=== PATIENT | female | born 1985 | race Caucasian/White ===

== ENCOUNTER 2019-03-28 09:04 | Outpatient (CLI) | payer BC, SELFPAY ==
[2019-03-28 12:55] LABS: Anion Gap 8.9 mmol/L (3-11); BUN 8 mg/dL (7-18); CO2 31.1 mmol/L (21.0-32.0); CREATININE 0.77 mg/dL (0.55-1.02); Calcium 8.8 mg/dL (8.5-10.1); Calculated LDL 104 mg/dL; Chloride 103 mmol/L (98-107); Cholesterol 166 mg/dL (<200); Glucose 79 mg/dL (74-106); HDL Cholesterol 53 mg/dL (40-60); Potassium 4.3 mmol/L (3.5-5.1); Sodium 143 mmol/L (136-145); Triglyceride 47 mg/dL (<150)
== END 2019-03-28 09:24 ==
PROVIDERS: PCP Nurse Practitioner Family; Visit Provider Nurse Practitioner Family
DX: Z00.00 Encounter for general adult medical examination without abnormal findings (principal); Z13.220 Encounter for screening for lipoid disorders; Z13.228 Encounter for screening for other metabolic disorders
CPT/HCPCS: 36415; 80048; 80061

== ENCOUNTER 2019-04-24 16:53 | Outpatient (REF) | payer BC, SELFPAY ==
--- NOTE | 2019-04-24 10:00 | PAPFT_PTH ---
PATIENT: Larisa Vargas LOC: AUDIE U#:[id number] AGE/SX: 34/F ROOM: RE04/24/[address]: QUENTIN Cordero : 1985 BED: DIS: 04/24/2019 SPEC #: [id number] RECD: 04/25/19 13:05 STATUS: TONY HERNANDEZ #: [id number] VARGHESE: 04/24/19 10:[address]: Roxana Villatoro DEPT: [facility] Cytology RECD BY: Joselyn Hernandez Tissues: 1 - CX/ENDOCX FOR PAP SMEARS Procedures: PAP THIN PREP/UVM Screening HPV DNA PROBE Comments: [id number]
== END 2019-04-24 17:13 ==
LOC: LBN 16:53
PROVIDERS: PCP Nurse Practitioner Family; Visit Provider Nurse Practitioner Family
DX: Z12.4 Encounter for screening for malignant neoplasm of cervix (principal)
CPT/HCPCS: 88142; 87624

== ENCOUNTER 2019-06-05 14:03 | Outpatient (REF) | payer BC, SELFPAY ==
--- NOTE | 2019-06-05 13:30 | ENDO_PTH ---
PATIENT: Larisa Vargas LOC: AUDIE U#:[id number] AGE/SX: 34/F ROOM: RE06/05/[address]: Geovanna August : 1985 BED: DIS: 06/05/2019 SPEC #: [id number] RECD: 06/05/19 17:57 STATUS: TONY HERNANDEZ #: [id number] VARGHESE: 06/05/19 13:[address]: Geovanna August DEPT: Surgical Specimen RECD BY: Joselyn Hernandez ENTERED: 06/05/19 17:59 SP TYPE: Endo OTHR DR: QUENTIN Cordero Tissues: 1 - ENDOCERVICAL BX/CURRETTE 2 - CERVICAL BIOPSY 3 - CERVICAL BIOPSY Procedures: GROSS AND MICRO LEVEL 4 Comments: [id number]
== END 2019-06-05 14:23 ==
LOC: LBN 14:03
PROVIDERS: PCP Nurse Practitioner Family; Visit Provider Obstetrics & Gynecology Gynecology
DX: N87.1 Moderate cervical dysplasia (principal); N72 Inflammatory disease of cervix uteri; R87.612 Low grade squamous intraepithelial lesion on cytologic smear of cervix (LGSIL); R87.810 Cervical high risk human papillomavirus (HPV) DNA test positive
CPT/HCPCS: 88305

== ENCOUNTER 2019-06-11 15:03 | Outpatient (REF) | payer BC, SELFPAY ==
--- NOTE | 2019-06-11 14:45 | CER_PTH ---
PATIENT: Larisa Vargas LOC: AUDIE U#:[id number] AGE/SX: 34/F ROOM: RE06/11/[address]: Geovanna August : 1985 BED: DIS: 06/11/2019 SPEC #: [id number] RECD: 06/11/19 18:09 STATUS: TONY RELuis #: [id number] VARGHESE: 06/11/19 14:[address]: Geovanna August DEPT: Surgical Specimen RECD BY: Joselyn Hernandez ENTERED: 06/11/19 18:12 SP TYPE: CER OTHR DR: Roxana Villatoro, SIDE PANEL HANGER Tissues: 1 - CERVICAL LEEP/LOOP 2 - CERVICAL LEEP/LOOP 3 - CERVICAL LEEP/LOOP 4 - CERVICAL LEEP/LOOP 5 - CERVICAL LEEP/LOOP Procedures: GROSS AND MICRO LEVEL 5 Comments: [id number]
== END 2019-06-11 15:23 ==
LOC: LBN 15:03
PROVIDERS: PCP Nurse Practitioner Family; Visit Provider Obstetrics & Gynecology Gynecology
DX: D06.0 Carcinoma in situ of endocervix (principal); N87.1 Moderate cervical dysplasia
CPT/HCPCS: 88307

== ENCOUNTER 2019-11-21 02:46 | Outpatient (CLI) | payer BC, SELFPAY ==
[2019-11-24 08:19] LABS: SARS-CoV-2 RNA Undetected (Undetected); SARS-CoV-2 Specimen Source Nasopharynx
== END 2019-11-21 03:06 ==
PROVIDERS: PCP Nurse Practitioner Family; Visit Provider Nurse Practitioner Family
DX: Z11.59 Encounter for screening for other viral diseases (principal)
CPT/HCPCS: U0003

== ENCOUNTER 2020-11-19 16:28 | Outpatient (REF) | payer MEDICAID, SELFPAY ==
--- NOTE | 2020-11-19 15:50 | PAPFT_PTH ---
PATIENT: Larisa Vargas LOC: AUDIE U#:[id number] AGE/SX: 35/F ROOM: RE11/19/[address]: QUENTIN Cleary : 1985 BED: DIS: 11/19/2020 SPEC #: [id number] RECD: 11/19/20 17:06 STATUS: TONY DAVID #: [id number] VARGHESE: 11/19/20 15:[address]: Leora Morales DEPT: [facility] Cytology RECD BY: Joselyn Hernandez ENTERED: 11/19/20 17:06 SP TYPE: PAPFT PASCALE DR: QUENTIN Cordero Tissues: 1 - CX/ENDOCX FOR PAP SMEARS Procedures: PAP THIN PREP/UVM Screening HPV DNA PROBE Comments: [id number]
[2020-11-22 15:18] LABS: Chlamydia Result Negative (Negative); GC Result Negative (Negative)
== END 2020-11-19 16:29 | disposition home or self-care (01) ==
LOC: LBN 16:28
PROVIDERS: PCP Nurse Practitioner Family; Visit Provider Nurse Practitioner Family
DX: Z11.3 Encounter for screening for infections with a predominantly sexual mode of transmission (principal); Z12.4 Encounter for screening for malignant neoplasm of cervix; Z11.51 Encounter for screening for human papillomavirus (HPV)
CPT/HCPCS: 87491; 87591; 88142; 87624

== ENCOUNTER 2021-07-01 12:19 | Outpatient (REF) | payer MEDICAID, SELFPAY ==
--- NOTE | 2021-07-01 12:00 | PAPFT_PTH ---
PATIENT: Larisa Vargas LOC: AUDIE U#:[id number] AGE/SX: 36/F ROOM: RE07/01/[address]: QUENTIN Cordero : 1985 BED: DIS: 07/01/2021 SPEC #: [id number] RECD: 07/01/21 13:14 STATUS: TONY HERNANDEZ #: [id number] VARGHESE: 07/01/21 12:[address]: Roxana Villatoro DEPT: [facility] Cytology RECD BY: Joselyn Hernandez Tissues: 1 - CX/ENDOCX FOR PAP SMEARS Procedures: PAP THIN PREP/UVM Screening HPV DNA PROBE Comments: [id number]
== END 2021-07-01 12:20 | disposition home or self-care (01) ==
LOC: LBN 12:19
PROVIDERS: PCP Nurse Practitioner Family; Visit Provider Nurse Practitioner Family
DX: N89.8 Other specified noninflammatory disorders of vagina (principal); R87.610 Atypical squamous cells of undetermined significance on cytologic smear of cervix (ASC-US); Z12.4 Encounter for screening for malignant neoplasm of cervix; Z87.410 Personal history of cervical dysplasia
CPT/HCPCS: 88142; 87480; 87510; 87624; 87660

== ENCOUNTER 2022-04-05 13:40 | Outpatient (REF) | payer MEDICAID, SELFPAY ==
--- NOTE | 2022-04-05 11:10 | PAPFT_PTH ---
PATIENT: Larisa Vargas LOC: AUDIE U#:[id number] AGE/SX: 37/F ROOM: RE04/05/[address]: QUENTIN Cordero : 1985 BED: DIS: 04/05/2022 SPEC #: [id number] RECD: 04/06/22 12:43 STATUS: TONY RELuis #: [id number] VARGHESE: 04/05/22 11:[address]: Roxana Villatoro DEPT: [facility] Cytology RECD BY: Joselyn Hernandez Tissues: 1 - CX/ENDOCX FOR PAP SMEARS Procedures: PAP THIN PREP/UVM Screening HPV DNA PROBE Comments: [id number] (HPV 16 & 18/45) (CHLAMYDIA/GC)
[2022-04-07 12:49] LABS: Chlamydia Result Negative (Negative); GC Result Negative (Negative)
== END 2022-04-05 13:41 | disposition home or self-care (01) ==
LOC: LBN 13:40
PROVIDERS: PCP Nurse Practitioner Family; Visit Provider Nurse Practitioner Family
DX: Z11.3 Encounter for screening for infections with a predominantly sexual mode of transmission (principal); Z12.4 Encounter for screening for malignant neoplasm of cervix; R87.612 Low grade squamous intraepithelial lesion on cytologic smear of cervix (LGSIL); Z11.51 Encounter for screening for human papillomavirus (HPV); R87.810 Cervical high risk human papillomavirus (HPV) DNA test positive
CPT/HCPCS: 87491; 87591; 88142; 87624

== ENCOUNTER 2022-04-17 01:39 | Outpatient (CLI) | payer MEDICAID, SELFPAY ==
--- NOTE | 2022-04-17 07:45 | DI.US_ITS ---
Exam(s) US BREAST LT COMPLETE US BREAST RT COMPLETE MG MAMMO DIAGNOSTIC BI EXAM: MG MAMMO DIAGNOSTIC BI CLINICAL HISTORY: bilateral breast pain, lumps upper outer quadrant,n64.4. TECHNIQUE: Craniocaudal and mediolateral oblique Full Field Digital Mammography views with Computer Aided Diagnosis followed by Tomosynthesis and breast ultrasound. COMPARISON: US US BREAST RT COMPLETE from 04/17/2022 US US BREAST LT COMPLETE from 04/17/2022. Baseline mammogram. FINDINGS: Mammography/Tomosynthesis: Masses/Architectural Distortion: None seen. Microcalcifictions: No suspicious pleomorphic-type are seen. Skin Thickening/Nipple Retraction: None. Left breast US: Echotexture: Normal appearance of the glandular tissue. Shadowing: No suspicious foci. Cyst: 8 x 3 x 8 millimeter cyst 1 o'clock position 1 cm from the nipple. 8 x 4 x 6 millimeter cyst 3 o'clock position 4 cm from the nipple Solid lesions: None seen. Ductal dilation: None. Right breast ultrasound: Echotexture: Normal appearance of the glandular tissue. Shadowing: No suspicious foci. Cyst: None. Solid lesions: None seen. Ductal dilation: None. IMPRESSION: 1. No evidence of malignancy is noted. 2. Unless there is more urgent need, follow-up screening mammography is recommended, as per [place] [employer] guidelines. 3. The findings were discussed with the patient on the date of the examination. BI-RADS Category 2 - Benign Findings Breast Density - Category C - Heterogeneously dense Breast density category C or D implies that the patient has dense breast tissue. Dense breast tissue is very common and is not abnormal but dense breast tissue can make it harder to find cancer on a ma mmogram. Also, dense breast tissue may increase their breast cancer risk. This information about the result of the mammogram report was provided to the patient to raise their awareness. Use this report when you speak with the patient about their risks for breast cancer, which includes their family hist ory. At that time, you may recommend for more screening tests (Ultrasound or MRI) as they might be us eful based on their risk. A negative radiographic report should not delay biopsy if a dominant or clinically suspicious mass is present. Up to ten percent of cancers are not identified on mammography. A negative report may reinforce clinical impression. Adenosis and dense breasts may obscure an underlying neoplasm. False positive reports average 6 to 10%. Patient will receive a letter notifying them of these results.
== END 2022-04-17 01:59 ==
LOC: DI 01:39
PROVIDERS: PCP Nurse Practitioner Family; Visit Provider Nurse Practitioner Family
DX: R92.2 Inconclusive mammogram (principal); N64.4 Mastodynia
CPT/HCPCS: 76642; 77062; 77066; G0279

== ENCOUNTER 2022-04-27 10:05 | Outpatient (REF) | payer MEDICAID, SELFPAY ==
--- NOTE | 2022-04-27 09:00 | ENDO_PTH ---
PATIENT: Larisa Vargas LOC: AUDIE U#:[id number] AGE/SX: 37/F ROOM: RE04/27/[address]: Marie Gay DO : 1985 BED: DIS: 04/27/2022 SPEC #: [id number] RECD: 04/27/22 12:25 STATUS: TONY RELuis #: [id number] VARGHESE: 04/27/22 09:[address]: Marie Gay DEPT: Surgical Specimen RECD BY: Joselyn Hernandez ENTERED: 04/27/22 12:26 SP TYPE: Endo OTHR DR: QUENTIN Cordero Tissues: 1 - ENDOCERVICAL BX/CURRETTE 2 - CERVICAL BIOPSY Procedures: GROSS AND MICRO LEVEL 4 Comments: [id number]
== END 2022-04-27 10:06 | disposition home or self-care (01) ==
LOC: LBN 10:05
PROVIDERS: PCP Nurse Practitioner Family; Visit Provider Obstetrics & Gynecology
DX: R87.612 Low grade squamous intraepithelial lesion on cytologic smear of cervix (LGSIL) (principal)
CPT/HCPCS: 88305

== ENCOUNTER 2022-05-19 15:03 | Emergency (ER) | payer MEDICAID, SELFPAY ==
[2022-05-19 15:07] VITALS: BP 127/66; PULSE 106; RESP 16; TEMP 36.4; O2SAT 99
--- NOTE | 2022-05-19 15:15 | DI.CT_ITS ---
Exam(s) CT RENAL COLIC WO EXAM: CT RENAL COLIC WO CLINICAL HISTORY: flank pain. TECHNIQUE: Imaging Protocol: Axial computed tomography images with coronal and sagittal reformatted images were created and reviewed. CONTRAST MATERIAL: Noncontrast COMPARISON: No exams were available for comparison FINDINGS: ABDOMEN: Lung Bases: Normal where visualized. Liver: Normal attenuation. No measurable mass. Gallbladder and biliary tract: Bladder contracted. No radiodense calculus or dilation. Pancreas: Normal density, no calcifications or inflammatory process. Spleen: Normal. Kidneys: Normal size, contour and axis. Slight right hydronephrosis. No renal calculi or ureteral ca lculi are seen. No masses seen. No perinephric collection. Adrenal glands: No masses seen. Abdominal Aorta: Abdominal portion non-dilated. PELVIS: Bladder: Symmetric distention, no gross wall thickening. No evidence of stones.No visible mass. Bowel: No obstruction or bowel wall thickening. Appendix normal. Moderate quantity of stool. Reproductive: Unremarkable. IUD. Peritoneal cavity: No ascites, collection or mesenteric inflammatory response. Bones: Unremarkable for age.. IMPRESSION: Mild right hydronephrosis. No visible obstructing stone. Findings could be secondary to a recently passed stone. RADIATION DOSE DELIVERED: 598.62mGy.cm Total DLP DATA REPOSITORY: All CT scans at this facility are submitted to the National Radiology Data Registry (NRDR) Dose Index Registry (DIR) with the [employer] (A[employer]). RADIATION OPTIMIZATION: All CT scans at this facility use at least one of these dose optimization te chniques: automated exposure control; mA and/or kV adjustment per patient size (includes targeted exa ms where dose is matched to clinical indication); or iterative reconstruction.
--- NOTE | 2022-05-19 15:21 | W.ED.GENAD ---
Discharge Plan Disposition Patient Disposition: Home Condition: Good Discharge Details Clinical Impression: Pyelonephritis Primary Care Provider: Roxana Villatoro ED Provider: Jagjit Warner Meds and New Rx's Prescriptions: New cefpodoxime 200 mg tablet 200 mg PO BID Qty: 14 0RF Rx Instructions: must administer with a meal/food Continued methylphenidate HCl 36 mg tablet extended release 24hr 36 mg PO DAILY MDD 36mg Qty: 28 0RF Rx Instructions: Take 1 tablet daily multivitamin [Daily Multi-Vitamin] Tablet 1 tab PO DAILY Discharge Instructions Instructions: Urinary Tract Infection in Women (ED) Additional Instructions: You were seen for right back pain. Your work-up suggest you have a right-sided kidney infection with no evidence of kidney stone. Please alternate acetaminophen with ibuprofen to help control pain. Drink plenty fluids to stay hydrated. 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 Follow-up with primary care next week. Return to ED for spiking fevers, worsening pain, vomiting, confusion, other concerns. Medical Decision Making Patient presenting with right back and flank pain that she does report worse with movement but also varies in intensity and when severe it causes nausea. Pain is in the right upper lumbar region. Breathing does not make it worse but when the pain is severe it makes her breathing hard. She does not feel short of breath otherwise. She has had no fever. Clinically this would potentially represent pyelonephritis, renal colic, musculoskeletal back pain. Given the location of pain and lack of pleuritic component or shortness of breath does not appear to be related to any pulmonary issues. Consider liver or gallbladder but she is nontender in the right upper quadrant. IV established and ketorolac ordered. Fluids started. Laboratory studies including urine and urinalysis sent. CT scan for stone ordered. Patient feels better after IV ketorolac. Pain is essentially gone. Vital signs are normal at this point. Her white count is elevated to 12.9. Hemoglobin, chemistries, kidney function, liver function, lipase are all normal. Initial urinalysis appears infected but is contaminated with epithelial cells. Repeat clean-catch micro was sent and confirms UTI. CT scan read by radiology shows some mild hydronephrosis but no evidence of renal, ureteral or bladder stone. Will assume patient has pyelonephritis despite lack of fever. She is quite active so I will hold off on fluoroquinolones. We will place her on cefpodoxime after a 1 g dose of ceftriaxone here. She will alternate acetaminophen with ibuprofen for pain control. She will drink fluids to stay hydrated. Follow-up with primary care next week. Return precautions provided. Lab Data Lab results reviewed: Yes I reviewed the patient's lab results. HPI General Mode of arrival: ambulatory. Date/Time Provider Initiated Documentation: 05/19/22 15:21. Limitations to Documentation: no limitations. Information obtained by: patient. HPI Narrative: Patient presents to the ED with right-sided flank pain that is worse with movement and changes in intensity since yesterday morning. Some radiation into the abdomen. The majority of pain is in the back and flank. She has had no fever, cough, shortness of breath, chest pain. She has nausea but no vomiting or diarrhea. She has no urinary symptoms and has not had any blood in her urine. She has no previous history of kidney stones. She has tried Tylenol at home without much relief. She has had no previous abdominal surgeries. She is otherwise healthy. Related Data Home Medications Medication Instructions Recorded Confirmed multivitamin (Daily Multi-Vitamin 1 tab PO DAILY 06/05/19 05/19/22 tablet) methylphenidate HCl 36 mg 36 mg PO DAILY #28 tabs 04/05/22 05/19/22 tablet,extended release 24 hr cefpodoxime 200 mg tablet 200 mg PO BID #14 tabs 05/19/22 Previous Rx's Medication Instructions Recorded methylphenidate HCl 36 mg 36 mg PO DAILY #28 tabs 04/05/22 tablet,extended release 24 hr cefpodoxime 200 mg tablet 200 mg PO BID #14 tabs 05/19/22 Allergies Allergy/AdvReac Type Severity Reaction Status Date / Time No Known Allergies Allergy Verified 04/27/22 08:49 General Stated Complaint: FlankPain AKASH: 3 Review of Systems Narrative: Per HPI PFSH All Active Problems (Updated 05/19/22 @ 17:36 by Jagjit Warner MD) Pyelonephritis (Acute) Major depressive disorder, recurrent (Chronic) Abnormal uterine bleeding (Chronic) IUD for treatment Abnormal Pap smear of cervix (Chronic) 04/2019: LGSIL, positive HPV. 05/2019 colpo biopsies: TAY-1, TAY-2. 05/2019: LEEP CIN2-3. Clear margins. 10/2020: Repeat Pap/HPV negative 06/2021: ASCUS/+HPV 03/2022-LSIL +HPV 04/2022-Colpo with ECC, Bx at 9 oclock IUD (intrauterine device) in place (Chronic) 06/10/2019 Kyleena IUD placed Right carpal tunnel syndrome (Chronic) Medical History ADHD Generalized anxiety disorder Surgical History S/P LEEP of cervix (~2019) Family History Mother No problems noted. Father Kidney disease Brother No problems noted. Brother No problems noted. Sister Depression Daughter No problems noted. Daughter No problems noted. Daughter No problems noted. Maternal Grandfather No problems noted. Maternal Grandmother No problems noted. Paternal Grandfather , in his 80s Skin cancer Paternal Grandmother , at 80 Breast cancer Alzheimer's dementia Social History Smoking/Tobacco Use Status: Never Second Hand Exposure: Yes Smoking risk assessment performed?: Yes Alcohol Intake: current Alcohol Intake frequency: a few times a month Alcohol type: hard liquor Drug use: Never Caregiver/Support person: No Household members: children Housing: apartment Number of Children: 3 Communication Needs: None Do you need help understanding health information?: Never current occupation: Teacher [employer] @ [employer] Pets and animals: No Sexually active: Yes Do you think of yourself as: straight/heterosexual Current gender identity: female What is your relationship status?: How often do you talk on the phone with friends or family?: once per week How often do you get together with friends or relatives?: once per week How often do you attend taoist or adventism services?: 1-3 times per year Do you belong to any clubs or organized social groups?: no Panel score (0-1 are the most socially isolated patients): 0 What type of physical activity do you participate in: weight lifting and running Duration: 45-60 minutes/day Frequency: 3-4 times per week Andree/Christian: No preference Special andree needs: No Seatbelt use: always Helmet use: Yes Helmet use: sometimes Drive intox or ride w/intox m48/m60 tank driver: No Do you feel safe at home: Yes Do you feel safe in your relationship?: Yes Additional Social history: Children: Eufemia Gross Penelope Female Reproductive History Menstrual control method: progestin IUCD History History 3 Para 3 Hx # Term Pregnancies Multiple births Hx # Pregnancies Ectopic pregnancies AB induced Hx Number of Living Children 3 AB spontaneous Exam Narrative Exam Narrative: Const: WDWN female in NAD. HEENT: NC/AT. Normal facial exam. Eyes: Normal conjunctiva and sclera. Neck: Supple. Trachea midline. Lungs: Normal respiratory effort. Lungs are clear. Cor: RRR without murmur/gallop. Good radial pulses. GI: Soft. NT/ND. No guarding or rebound. Back: Right CVAT Neuro: A+O x 3. Normal speech, mentation, gait. Cranial nerves II - XII grossly intact. No gross motor or sensory deficit. Ext: No C/C/E. Skin: Warm and dry without rash. Course Vital Signs Vital signs: Vital Signs Temperature 97.5 F L 05/19/22 15:07 Pulse 106 H 05/19/22 15:07 Respiratory Rate 16 05/19/22 15:07 Blood Pressure 127/66 05/19/22 15:07 Pulse Oximetry 99 05/19/22 15:07 Temperature 97.5 F L 05/19/22 15:07 Temperature Source Oral 05/19/22 15:07 Pulse 106 H 05/19/22 15:07 Respiratory Rate 16 05/19/22 15:07 Respiratory Effort Normal 05/19/22 15:11 Blood Pressure 127/66 05/19/22 15:07 Blood Pressure Position Sitting 05/19/22 15:07 Pulse Oximetry 99 05/19/22 15:07 Oxygen Delivery Method Room Air 05/19/22 15:07 Oxygen Flow Rate 0 05/19/22 15:07 Pain Level 7 05/19/22 15:07
[2022-05-19 15:36] LABS: Abs Immature Grans 0.04 10^3/uL (0.0-0.06); Absolute Basophil Count 0.06 10^3/uL (0.0-0.2); Absolute Monocyte Count 0.99 10^3/uL (0.1-0.8); Absolute Neutrophil Count 10.16 10^3/uL (1.2-6.7); Basophils % 0.5; Eosinophils % 0.8; HCT 43.4 % (36.0-46.0); Immature Grans % 0.3; Lymphocytes % 11.7; MCH 29.5 pg (27.0-33.0); MCHC 32.3 % (32.0-36.0); MCV 92 fL (80-95); MPV 9.5 fL (8.0-11.0); Monocytes % 7.7; Platelet Count 257 10^3/uL (130-400); RBC 4.74 10^6/uL (3.93-5.22); RDW 11.9 % (11.7-14.6); WBC 12.86 10^3/uL (4.4-10.8)
[2022-05-19] MEDS: Ketorolac 30 MG/ML VIAL IVP (15:44)
[2022-05-19] MEDS: Normal Saline 1,000 ML 1000 ML IV (15:45)
[2022-05-19 15:53] LABS: ALT 18 U/L (14-59); AST 21 U/L (15-37); Albumin 4.5 g/dL (3.4-5.0); Alkaline Phosphatase 70 U/L (46-116); Anion Gap 4.5 mmol/L (3-11); BUN 7 mg/dL (7-18); Bilirubin, Total 0.7 mg/dL (0.2-1.0); CO2 32.5 mmol/L (21.0-32.0); Calcium 9.3 mg/dL (8.5-10.1); Chloride 103 mmol/L (98-107); Estimated GFR 75.34 (mL/min/1.73m2); Glucose 103 mg/dL (74-106); Lipase 46 U/L (16-77); Potassium 4.3 mmol/L (3.5-5.1); Sodium 140 mmol/L (136-145)
[2022-05-19 15:56] LABS: Bilirubin Negative (Negative); Blood Moderate (Negative); Clarity Sl Cloudy (Clear); Glucose Negative (Negative); Ketones Negative (Negative); Leukocyte Esterase Small (Negative); Nitrite Negative (Negative); Specific Gravity 1.025 (1.005-1.025); Urobilinogen 0.2 mg/dL (Up to 0.2)
--- NOTE | 2022-05-19 16:10 | NUR.NOTE ---
Nursing Note: Pt to DI via wheelchair for ordered exam, reports discomfort relieved w/IV toradol, provider aware.
[2022-05-19 16:22] LABS: Bacteria Many HPF (Negative); C & S Indicated? No/Sq. Contamination; Crystals Negative HPF (Negative); Epithelial Cells Moderate HPF (Negative); Mucus Trace (Negative); RBC 20-50 HPF (0-2); WBC >50 HPF (0-5)
[2022-05-19 16:47] VITALS: BP 121/65; PULSE 83; RESP 18; O2SAT 97
--- NOTE | 2022-05-19 16:48 | NUR.NOTE ---
Nursing Note: Pt ambulatory to bathroom for repeat urine sample, IVF cont. to infuse, pain controlled at this time.
[2022-05-19 17:20] LABS: Bacteria Moderate HPF (Negative); Crystals Moderate Amorphous HPF (Negative); Epithelial Cells Few HPF (Negative); WBC 20-50 HPF (0-5)
[2022-05-19 17:21] LABS: C & S Indicated? Yes; Casts 0-2 Hyaline LPF (Negative); Mucus Trace (Negative)
[2022-05-19] MEDS: cefTRIAXone 1 GM/50 ML BAG IVPB (17:35)
[2022-05-19 17:56] VITALS: BP 114/68; PULSE 88; RESP 16; TEMP 37; O2SAT 98
--- NOTE | 2022-05-22 13:42 | NUR.NOTE ---
Nursing Note: Accessed chart to look up whether or not on antibiotic.
--- NOTE | 2022-05-22 14:51 | W.EDPROG ---
Date of service: 05/22/22 Time of Service: 14:52 Medical Decision Making Patient was seen in the emergency department and diagnosed with pyelonephritis. I reviewed her culture results which was showing pansensitive E. coli. Patient was discharged on cefpodoxime. We will continue empiric trial of expectant outpatient management. Discharge Plan Disposition Patient Disposition: Home Condition: Good Discharge Details Clinical Impression: Pyelonephritis Primary Care Provider: Roxana Villatoro ED Provider: Jagjit Warner [facility] and New Rx's Prescriptions: New cefpodoxime 200 mg tablet 200 mg PO BID Qty: 14 0RF Rx Instructions: must administer with a meal/food Continued methylphenidate HCl 36 mg tablet extended release 24hr 36 mg PO DAILY MDD 36mg Qty: 28 0RF Rx Instructions: Take 1 tablet daily multivitamin [Daily Multi-Vitamin] Tablet 1 tab PO DAILY Discharge Instructions Instructions: Urinary Tract Infection in Women (ED) Additional Instructions: You were seen for right back pain. Your work-up suggest you have a right-sided kidney infection with no evidence of kidney stone. Please alternate acetaminophen with ibuprofen to help control pain. Drink plenty fluids to stay hydrated. 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 Follow-up with primary care next week. Return to ED for spiking fevers, worsening pain, vomiting, confusion, other concerns. Discharge Data Discharge Date/Time-TO BE ENTERED AT DEPARTURE: 05/19/22 18:09
== END 2022-05-19 18:09 | disposition home or self-care (01) ==
PROVIDERS: Emergency Provider Emergency Medicine; PCP Nurse Practitioner Family
DX: N12 Tubulo-interstitial nephritis, not specified as acute or chronic (principal); D72.829 Elevated white blood cell count, unspecified; N13.30 Unspecified hydronephrosis
CPT/HCPCS: 36415; 80053; 81025; 83690; 87077; 96361; 96365; 96375; 99284; 74176; 81003; 81015; 85025; 87086; 87186; J0696; J1885

== ENCOUNTER 2022-07-03 01:25 | Outpatient (CLI) | payer MEDICAID, SELFPAY ==
[2022-07-03 12:13] LABS: HGB 12.9 g/dL (11.2-15.7); MCHC 33.9 % (32.0-36.0); MCV 91 fL (80-95); MPV 9.5 fL (8.0-11.0); Platelet Count 233 10^3/uL (130-400); RBC 4.16 10^6/uL (3.93-5.22); RDW 12.3 % (11.7-14.6); RDW-SD 41.6 fL; WBC 6.38 10^3/uL (4.4-10.8)
[2022-07-03 12:34] LABS: Lab Add On Test DONE
[2022-07-03 12:35] LABS: Anion Gap 5.2 mmol/L (3-11); BUN 10 mg/dL (7-18); CO2 28.8 mmol/L (21.0-32.0); CREATININE 0.9 mg/dL (0.55-1.02); Calcium 8.9 mg/dL (8.5-10.1); Chloride 103 mmol/L (98-107); Glucose 108 mg/dL (74-106); Sodium 137 mmol/L (136-145); TSH (W/Ref FT4) 1.93 uIU/mL (0.36-3.74)
[2022-07-03 12:39] LABS: Hemoglobin A1C 5.3 % (<5.7)
== END 2022-07-03 01:26 | disposition home or self-care (01) ==
LOC: LOS 01:25
PROVIDERS: PCP Nurse Practitioner Family; Visit Provider Nurse Practitioner Family
DX: R53.83 Other fatigue (principal); Z83.3 Family history of diabetes mellitus
CPT/HCPCS: 36415; 80048; 85027; 83036; 84443

== ENCOUNTER 2022-08-07 07:45 | Emergency (ER) | payer MEDICAID, SELFPAY ==
[2022-08-07 07:49] VITALS: BP 99/71; PULSE 61; RESP 18; TEMP 36; O2SAT 100
--- NOTE | 2022-08-07 07:56 | W.ED.GENAD ---
Discharge Plan Disposition Patient Disposition: Home Condition: Good Discharge Details Clinical Impression: Closed fracture of 5th metacarpal Primary Care Provider: Roxana Villatoro ED Provider: Bree Matthews Home Meds and New Rx's Prescriptions: Continued multivitamin [Daily Multi-Vitamin] Tablet 1 tab PO DAILY methylphenidate HCl 36 mg tablet extended release 24hr 36 mg PO DAILY MDD 36mg Qty: 28 0RF Rx Instructions: Take 1 tablet daily Discharge Instructions Instructions: Boxer Fracture (ED) Additional Instructions: Alignment of fracture significantly improved after reduction. Please keep splint on until reevaluated by orthopedics. Please encourage rest, ice, elevation. Tylenol and ibuprofen as needed for discomfort. Please call orthopedics to schedule follow-up appointment. Number listed below. If you develop any new or worsening symptoms please seek care urgently once again. Please continue with sling to protect the area as needed, particularly when at work. Avoid any lifting with the right hand. Referrals: Roxana Villatoro NP [Primary Care Provider] - Ruy Hernández MD [ [facility] STAFF PHYSICIAN] - Discharge Data Discharge Date/Time-TO BE ENTERED AT DEPARTURE: 08/07/22 11:27 Medical Decision Making Patient is a pleasant 37-year-old [id number] female presenting today with chief complaint of right hand pain. She reports that this morning she got upset and punched the wall. Since that time she has been having pain over the fifth MCP joint. No radiation of pain. No numbness or tingling. Denies other injury at the time of the incident. History of fracture to the right wrist but no pain in that region, no prior hand fractures or surgeries. On exam, patient appears nontoxic. 2+ distal pulses. Sensation is intact. No pain over the anatomical snuffbox or in the wrist. Good range of motion. No palpable visible deformities. Ecchymosis, pain in maximal area of tenderness over the fifth MCP joint. Consider potential fracture and will obtain x-ray for further evaluation. Patient declines analgesics. BONES: There is a fracture at the distal shaft the 5th metacarpal with ventral angulation and ventral displacement.? No additional fractures are seen.? No bony destructive lesion is seen. JOINTS: No dislocation present. SOFT TISSUE: Swelling over 5th metacarpal head. IMPRESSION: Fifth metacarpal fracture. Consulted with ortho. They advised reduction with Jahss technique and application of ulnar gutter. Discussed with patient and family. We discussed risks/benefits, expected procedural steps and alternative. We have decided on hematoma block and bedside reduction. Conset obtained. Hematoma block was completed using standard, sterile technique. 1% Lidocaine plain was infiltrated into fracture, 6cc. This provided sufficient analgesics. Jahss procedure was attempted, split applied and xr obtained. FINDINGS: A plaster cast has been placed which obscures the bony detail.? The alignment appears unchanged. Consented the patient again. Another hematoma block completed as initial was wearing off. This was also completed with standard, sterile technique. 5cc infiltrated with good effected. This time, direct manipulation was used. FINDINGS: ?Limited evaluation without lateral view.? Limited due to overlap of fingers with metacarpals.? Alignment of the previously noted 5th metacarpal fracture is significantly improved. Patient neurovascularly intact. plaster ulnar splint put on with MCP at 90 and PIP held straight. Padding between 5 and 4 digits, included 4th in splint as well. Patient tolerated this well. Sling applied. Encoraged RICE. Will refer to ortho. Return precautions discussed. Discussed activies she should avoid as well as pain managmeent. All of her quesitons and concerns were addressed, she is in agreement with this plan. HPI General Date/Time Provider Initiated Documentation: 08/07/22 07:54. Limitations to Documentation: no limitations. Information obtained by: patient and RN notes reviewed. History of Present Illness 37 year old F presents to the emergency department with the chief complaint of right hand pain after punching wall, described as moderate, with intensity rated at 6. Quality is described as aching, and is localized to the right and upper extremity. Patient reports no radiation. Patient started experiencing this hour(s) and it has been constant. Immobilization improves symptom(s), Movement worsens symptoms . Patient notes no other symptoms.. Patient did receive the following treatments prior to arrival, none Related Data Home Medications Medication Instructions Recorded Confirmed multivitamin (Daily Multi-Vitamin 1 tab PO DAILY 06/05/19 08/07/22 tablet) methylphenidate HCl 36 mg 36 mg PO DAILY #28 tabs 07/03/22 08/07/22 tablet,extended release 24 hr Previous Rx's Medication Instructions Recorded methylphenidate HCl 36 mg 36 mg PO DAILY #28 tabs 07/03/22 tablet,extended release 24 hr Allergies Allergy/AdvReac Type Severity Reaction Status Date / Time No Known Allergies Allergy Verified 08/07/22 07:51 General Stated Complaint: Orthopedic AKASH: 4 Review of Systems Constitutional Constitutional: Reports as per HPI and Denies weakness Musculoskeletal Musculoskeletal: Reports as per HPI and Denies tingling Integumentary/Breasts Skin/Breast: Reports as per HPI Neurologic Neurologic: Reports as per HPI, Denies tingling, Denies paresthesias and Denies weakness PFSH All Active Problems (Updated 08/07/22 @ 11:22 by LISA Pederson) Closed fracture of 5th metacarpal (Acute) Generalized anxiety disorder (Chronic) ADHD (Chronic) Major depressive disorder, recurrent (Chronic) Abnormal uterine bleeding (Chronic) IUD for treatment Abnormal Pap smear of cervix (Chronic) 04/2019: LGSIL, positive HPV. 05/2019 colpo biopsies: TAY-1, TAY-2. 05/2019: LEEP CIN2-3. Clear margins. 10/2020: Repeat Pap/HPV negative 06/2021: ASCUS/+HPV 03/2022-LSIL +HPV 04/2022-Colpo with ECC, Bx at 9 oclock IUD (intrauterine device) in place (Chronic) 06/10/2019 Kyleena IUD placed Right carpal tunnel syndrome (Chronic) Medical History ADHD Generalized anxiety disorder Surgical History S/P LEEP of cervix (~2019) Family History Mother No problems noted. Father Kidney disease Brother No problems noted. Brother No problems noted. Sister Depression Daughter No problems noted. Daughter No problems noted. Daughter No problems noted. Maternal Grandfather No problems noted. Maternal Grandmother No problems noted. 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[employer] Pets and animals: No Sexually active: Yes Do you think of yourself as: straight/heterosexual Current gender identity: female What is your relationship status?: How often do you talk on the phone with friends or family?: once per week How often do you get together with friends or relatives?: once per week How often do you attend hinduism or restorationist services?: 1-3 times per year Do you belong to any clubs or organized social groups?: no Panel score (0-1 are the most socially isolated patients): 0 What type of physical activity do you participate in: weight lifting and running Duration: 45-60 minutes/day Frequency: 3-4 times per week Andree/Congregational: No preference Special andree needs: No Seatbelt use: always Helmet use: Yes Helmet use: sometimes Drive intox or ride w/intox dinkey driver: No Do you feel safe at home: Yes Do you feel safe in your relationship?: Yes Additional Social history: Children: Ginny, Eufemia, Osmond Female Reproductive History Menstrual control method: progestin IUCD History History 3 Para 3 Hx # Term Pregnancies Multiple births Hx # Pregnancies Ectopic pregnancies AB induced Hx Number of Living Children 3 AB spontaneous Exam Const General: cooperative, healthy appearing, comfortable, no acute distress, well developed and well groomed Nutritional Appearance: average body habitus and well nourished Orientation: alert and awake Resp Effort & Inspection: normal respiratory effort, able to speak in complete sentences and no respiratory distress Cardio Rate: regular rate Rhythm: regular rhythm Skin General skin exam: ecchymosis Neuro General: patient alert and patient awake Cognition: normal cognition Speech: speech normal Gait: normal gait Motor: muscle tone normal throughout Sensory Exam: no sensory deficits noted Extrem Hand/finger images: 1. Area of maximal discomfort over the fifth MCP joint. No pain proximal to this, no palpable or visual deformity. 2+ distal pulses. Area of ecchymosis and some amount of swelling over this area. This does not extend into the finger. Wrist is nontender with full range of motion. No pain over the anatomical snuffbox. Good range of motion of her fingers. Sensation intact. Psych Appearance: grossly normal and well kempt Mental Status: mental status grossly normal Speech and Movement: speech and movement normal Course Vital Signs Vital signs: Vital Signs Temperature 36.0 C L 08/07/22 07:49 Pulse 61 08/07/22 07:49 Respiratory Rate 18 08/07/22 07:49 Blood Pressure 99/71 L 08/07/22 07:49 Pulse Oximetry 100 08/07/22 07:49 Temperature 36.0 C L 08/07/22 07:49 Temperature Source Skin 08/07/22 07:49 Pulse 61 08/07/22 07:49 Respiratory Rate 18 08/07/22 07:49 Respiratory Effort Normal 08/07/22 07:52 Blood Pressure 99/71 L 08/07/22 07:49 Pulse Oximetry 100 08/07/22 07:49 Oxygen Delivery Method Room Air 08/07/22 07:49 Oxygen Flow Rate 0 08/07/22 07:49 Pain Level 7 08/07/22 07:54 Procedures Orthopedic Fracture Reduction Fracture #1: Time Out Performed: Yes Side: right Fracture Reduction Location: metacarpal Analgesia: hematoma block Technique: direct manipulation Post Reduction X-rays Demonstrate: anatomical reduction Post-reduction neuro exam: intact and no change Post-reduction vascular exam: intact and no change Splint Applied: Yes Patient Tolerated Procedure: well and no complications
--- NOTE | 2022-08-07 08:00 | DI.RAD_ITS ---
Exam(s) XR HAND RT COMPLETE EXAM: XR HAND RT COMPLETE CLINICAL HISTORY: punched wall, ulnar sided hand pain. TECHNIQUE: 2D digital imaging was performed. Three views. COMPARISON: No exams were available for comparison FINDINGS: BONES: There is a fracture at the distal shaft the 5th metacarpal with ventral angulation and ventral displacement. No additional fractures are seen. No bony destructive lesion is seen. JOINTS: No dislocation present. SOFT TISSUE: Swelling over 5th metacarpal head. IMPRESSION: Fifth metacarpal fracture. DATA REPOSITORY: RADIATION DOSE DELIVERED:
[2022-08-07] MEDS: Lidocaine 1% Multi-Dose 50 ML VIAL IJ (08:48)
--- NOTE | 2022-08-07 09:30 | DI.RAD_ITS ---
Exam(s) XR HAND RT COMPLETE EXAM: XR HAND RT COMPLETE CLINICAL HISTORY: post reduction. TECHNIQUE: 2D digital imaging was performed. Three views. COMPARISON: CR XR HAND RT COMPLETE from 08/07/2022 FINDINGS: A plaster cast has been placed which obscures the bony detail. The alignment appears unchanged. DATA REPOSITORY: RADIATION DOSE DELIVERED:
--- NOTE | 2022-08-07 10:45 | DI.RAD_ITS ---
Exam(s) XR HAND RT LIMITED EXAM: XR HAND RT LIMITED INDICATION: post-reduction. COMPARISON: CR XR HAND RT COMPLETE from 08/07/2022 CR XR HAND RT COMPLETE from 08/07/2022 TECHNIQUE: 2D digital imaging was performed. Two views. PA and oblique. No lateral. FINDINGS: Limited evaluation without lateral view. Limited due to overlap of fingers with metacarpals. Align ment of the previously noted 5th metacarpal fracture is significantly improved. DATA REPOSITORY: RADIATION DOSE DELIVERED:
[2022-08-07 11:26] VITALS: BP 99/71; PULSE 61; RESP 18; TEMP 36; O2SAT 100
== END 2022-08-07 11:27 | disposition home or self-care (01) ==
PROVIDERS: Emergency Provider Physician Assistant; PCP Nurse Practitioner Family
DX: S62.326A Displaced fracture of shaft of fifth metacarpal bone, right hand, initial encounter for closed fracture (principal); W22.8XXA Striking against or struck by other objects, initial encounter
CPT/HCPCS: 26605; 81025; 99283; 73120; 73130

== ENCOUNTER 2022-08-15 16:13 | Outpatient (CLI) | payer MEDICAID, SELFPAY ==
--- NOTE | 2022-08-15 15:15 | DI.RAD_ITS ---
Exam(s) XR HAND RT COMPLETE EXAM: XR HAND RT COMPLETE CLINICAL HISTORY: Right 5th metacarpal fracture. TECHNIQUE: 2D digital imaging was performed of the right hand. Three images were obtained. AP, late ral and oblique views were obtained. COMPARISON: CR XR HAND RT COMPLETE from 08/07/2022 CR XR HAND RT COMPLETE from 08/07/2022 CR XR HAND RT LIMITED from 08/07/2022 FINDINGS: BONES: There has been no change in alignment of the fracture involving the distal 5th metacarpal. No new fractures are seen. No bony destructive lesion is seen. JOINTS: No dislocation present. The disc spaces are well maintained. SOFT TISSUE: Normal. IMPRESSION: Stable 5th metacarpal fracture. DATA REPOSITORY: RADIATION DOSE DELIVERED:
== END 2022-08-15 16:14 | disposition home or self-care (01) ==
LOC: DIORS 16:13
PROVIDERS: PCP Nurse Practitioner Family; Referring Provider Nurse Practitioner Family; Visit Provider Student in an Organized Health Care Education/Training Program
DX: S62.308D Unspecified fracture of other metacarpal bone, subsequent encounter for fracture with routine healing (principal); X58.XXXA Exposure to other specified factors, initial encounter
CPT/HCPCS: 73130

== ENCOUNTER 2022-08-22 15:35 | Outpatient (CLI) | payer MEDICAID, SELFPAY ==
--- NOTE | 2022-08-22 15:15 | DI.RAD_ITS ---
Exam(s) XR HAND RT COMPLETE EXAM: XR HAND RT COMPLETE CLINICAL HISTORY: F/U FRACTURE. TECHNIQUE: 2D digital imaging was performed. COMPARISON: CR XR HAND RT COMPLETE from 08/15/2022 FINDINGS: 3 views Appearance neck of the 5th meta carpal is unchanged. No further displacement nor angulation. No add itional fractures. No radiopaque foreign body. IMPRESSION: Stable appearance of the fracture site in the 5th metacarpal neck. DATA REPOSITORY: RADIATION DOSE DELIVERED:
== END 2022-08-22 15:36 | disposition home or self-care (01) ==
LOC: DIORS 15:35
PROVIDERS: PCP Nurse Practitioner Family; Referring Provider Nurse Practitioner Family; Visit Provider Student in an Organized Health Care Education/Training Program
DX: S62.326D Displaced fracture of shaft of fifth metacarpal bone, right hand, subsequent encounter for fracture with routine healing (principal); W22.8XXD Striking against or struck by other objects, subsequent encounter; X58.XXXD Exposure to other specified factors, subsequent encounter
CPT/HCPCS: 73130

== ENCOUNTER 2022-09-12 15:05 | Outpatient (CLI) | payer MEDICAID, SELFPAY ==
--- NOTE | 2022-09-12 14:45 | DI.RAD_ITS ---
Exam(s) XR HAND RT COMPLETE EXAM: XR HAND RT COMPLETE CLINICAL HISTORY: 5th metacarpal fx f/u. TECHNIQUE: 2D digital imaging was performed of the right hand. Three images were obtained. AP, late ral and oblique views were obtained. COMPARISON: CR XR HAND RT COMPLETE from 08/22/2022 FINDINGS: BONES: There is a stable 5th metacarpal fracture. No new fractures identified. No bony destructive lesion is seen. JOINTS: No dislocation present. The joint spaces are well maintained. SOFT TISSUE: Normal. IMPRESSION: Stable 5th metacarpal fracture. DATA REPOSITORY: RADIATION DOSE DELIVERED:
== END 2022-09-12 15:06 | disposition home or self-care (01) ==
LOC: DIORS 15:05
PROVIDERS: PCP Nurse Practitioner Family; Referring Provider Nurse Practitioner Family; Visit Provider Student in an Organized Health Care Education/Training Program
DX: S62.326D Displaced fracture of shaft of fifth metacarpal bone, right hand, subsequent encounter for fracture with routine healing (principal); X58.XXXD Exposure to other specified factors, subsequent encounter; W22.8XXD Striking against or struck by other objects, subsequent encounter; Z47.89 Encounter for other orthopedic aftercare
CPT/HCPCS: 73130

== ENCOUNTER 2022-10-17 14:35 | Outpatient (CLI) | payer MEDICAID, SELFPAY ==
--- NOTE | 2022-10-17 14:30 | DI.RAD_ITS ---
Exam(s) XR HAND RT LIMITED EXAM: XR HAND RT LIMITED CLINICAL HISTORY: metacarpal fx f/u. TECHNIQUE: 2D digital imaging was performed of the right hand. Two images were obtained. PA and lat eral views were obtained. COMPARISON: CR XR HAND RT COMPLETE from 09/12/2022 FINDINGS: BONES: The 5th metacarpal fracture appears well healed. No new fractures identified. No bony destru ctive lesion is seen. JOINTS: No dislocation present. SOFT TISSUE: Normal. IMPRESSION: No acute abnormality. DATA REPOSITORY: RADIATION DOSE DELIVERED:
== END 2022-10-17 14:36 | disposition home or self-care (01) ==
LOC: DIORS 14:35
PROVIDERS: PCP Nurse Practitioner Family; Referring Provider Nurse Practitioner Family; Visit Provider Student in an Organized Health Care Education/Training Program
DX: S62.326D Displaced fracture of shaft of fifth metacarpal bone, right hand, subsequent encounter for fracture with routine healing (principal); X58.XXXD Exposure to other specified factors, subsequent encounter
CPT/HCPCS: 73120

== ENCOUNTER 2023-05-17 15:46 | Outpatient (REF) | payer MEDICAID, SELFPAY ==
--- NOTE | 2023-05-17 15:30 | PAPFT_PTH ---
PATIENT: Larisa Vargas LOC: [facility] U#:[id number] AGE/SX: 38/F ROOM: RE05/17/[address]: Marie Gay DO : 1985 BED: DIS: 05/17/2023 SPEC #: [id number] RECD: 05/17/23 17:39 STATUS: TONY REQ #: [id number] VARGHESE: 05/17/23 15:[address]: Marie Gay DEPT: [facility] Cytology RECD BY: Joselyn Hernandez ENTERED: 05/17/23 17:39 SP TYPE: PAPFT OTHR DR: Roxana Villatoro, QUENTIN Tissues: 1 - CX/ENDOCX FOR PAP SMEARS Procedures: PAP THIN PREP/[facility] Screening HPV DNA PROBE Comments: [id number] (HPV 16 & 18/45)
== END 2023-05-17 15:47 | disposition home or self-care (01) ==
LOC: LBN 15:46
PROVIDERS: PCP Nurse Practitioner Family; Visit Provider Obstetrics & Gynecology
DX: Z01.419 Encounter for gynecological examination (general) (routine) without abnormal findings (principal); Z12.4 Encounter for screening for malignant neoplasm of cervix
CPT/HCPCS: 88142; 87624

== ENCOUNTER 2023-07-09 14:13 | Outpatient (REF) | payer MEDICAID, SELFPAY ==
--- NOTE | 2023-07-09 13:30 | ENDO_PTH ---
PATIENT: Larisa Vargas LOC: [facility] U#:[id number] AGE/SX: 38/F ROOM: RE07/09/[address]: Marie Gay DO : 1985 BED: DIS: 07/09/2023 SPEC #: [id number] RECD: 07/09/23 17:27 STATUS: TONY RE #: [id number] VARGHESE: 07/09/23 13:[address]: Marie Gay DEPT: Surgical Specimen RECD BY: Joselyn Hernandez ENTERED: 07/09/23 17:28 SP TYPE: Endo OTHR DR: QUENTIN Cordero Tissues: 1 - ENDOCERVICAL BX/CURRETTE 2 - CERVICAL BIOPSY Procedures: GROSS AND MICRO LEVEL 4 Comments: [id number]
== END 2023-07-09 14:14 | disposition home or self-care (01) ==
LOC: LBN 14:13
PROVIDERS: PCP Nurse Practitioner Family; Visit Provider Obstetrics & Gynecology
DX: R87.612 Low grade squamous intraepithelial lesion on cytologic smear of cervix (LGSIL) (principal)
CPT/HCPCS: 88305

== ENCOUNTER 2024-07-09 08:55 | Emergency (ER) | payer SELFPAY ==
--- NOTE | 2024-07-09 08:45 | RT.EKG_ITS ---
APPROVED REPORT Exam: Resting ECG Reason for Exam: chest pain Patient Location: E HR:77 bpm ECG Measurements Heart Rate 77 AXIS HI 140 P 84 QRSd 96 QRS 72 QT 357 T 44 QTc 405 Conclusion Sinus rhythm...normal P axis, V-rate 60- 99
[2024-07-09 08:57] VITALS: BP 171/80; PULSE 105; RESP 18; TEMP 36.8; O2SAT 99
--- NOTE | 2024-07-09 09:15 | DI.RAD_ITS ---
Exam(s) XR CHEST 2V PA LATERAL EXAM: XR CHEST 2V PA LATERAL CLINICAL HISTORY: Right lower rib pain with cough. TECHNIQUE: 2D digital imaging was performed. COMPARISON: No exams were available for comparison FINDINGS: 2 views: Heart size is normal. The mediastinum is not widened. Lungs are clear. No infiltrates nor pleural effusions. IMPRESSION: No acute pulmonary findings. DATA REPOSITORY: RADIATION DOSE DELIVERED:
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
[2024-07-09] MEDS: Acetaminophen 500 MG TAB 1000 MG PO (09:44)
[2024-07-09] MEDS: Lidocaine 5% Patch 1 PATCH TP (09:45)
[2024-07-09 10:07] VITALS: BP 105/69; PULSE 68; RESP 16; TEMP 36.8; O2SAT 98
== END 2024-07-09 10:40 | disposition home or self-care (01) ==
PROVIDERS: Emergency Provider Physician Assistant; PCP Nurse Practitioner Family
DX: J06.9 Acute upper respiratory infection, unspecified; M94.0 Chondrocostal junction syndrome [Tietze]
CPT/HCPCS: 99283; 99284; 93005; 71046; 93010